=== PATIENT | male | born 1965 | race African-American/Black ===

== ENCOUNTER 2024-01-20 11:26 | Emergency (ER) | payer OTHER ==
[2024-01-20 11:33] VITALS: BP 131/88; PULSE 61; RESP 18; TEMP 98.7; BMI 27.4
[2024-01-20 13:39] LABS: BASO % 0.4 % (0-2.0); EOS % 0.6 % (0-4.5); HEMATOCRIT 46.9 % (35.4-49); HEMOGLOBIN 16.2 GM/dL (11.7-16.9); LYMPH % 30.7 % (8-40); MCH 30.5 pg (25.7-33.7); MCHC 34.5 g/dl (32.0-35.9); MEAN CELL VOLUME 88.5 fl (80-96); MEAN PLT VOLUME 7.1 fl (7.5-11.1); MONO % 7.6 % (3.8-10.2); NEUT % 60.7 % (42.8-82.8); PLATELET COUNT 187 10^3/uL (134-434); RDW 13.3 % (11.9-15.9); WHITE BLOOD COUNT 7.3 K/mm3 (4.0-10.0)
[2024-01-20 14:01] LABS: POTASSIUM 4.4 mmol/L (3.5-5.1)
[2024-01-20 14:05] LABS: ALBUMIN 4.5 g/dl (3.4-5.0); BLOOD UREA NITROGEN 10.9 mg/dL (7-18)
[2024-01-20 14:09] LABS: BILIRUBIN,TOTAL 0.5 mg/dL (0.2-1); TOT PROT 8.4 g/dl (6.4-8.2)
[2024-01-20 14:15] LABS: CREATININE 1.2 mg/dL (0.55-1.3)
== END 2024-01-20 15:07 | disposition home or self-care (01) ==
LOC: JERFT 11:26
DX: Z76.0 Encounter for issue of repeat prescription (principal); R56.9 Unspecified convulsions
CPT/HCPCS: 36415; 80053; 80185; 85025; 99283-25